=== PATIENT | female | born 1940 | race Caucasian/White ===

== ENCOUNTER 2017-07-01 14:37 | Inpatient (IN) | payer OTHER ==
[~2017-07-01] VITALS: Ht 157.5 cm; Wt 63.5 kg
--- NOTE | ~2017-07-01 | EKG ---
[address] [place] [place] [address] ELECTROCARDIOGRAM REPORT Name: YARED VERDUZCO Room #: 462- ADM IN M.R.#: [id number] Admission: 07/01/17 Attend Phys: Darwin Hayden MD Discharge: Date of : 44 Report #: [id number] THIS REPORT FOR: //name// [facility] Test Date: 2017-07-02 Test Time: 14:38:46 Pat Name: YARED VERDUZCO Department: Room: 462 Gender: F Neurology Tech: ABDULAZIZ : 1940 Requested By: Ericka Reyes Order Number: [id number] MD: Tee Ruiz Measurements Intervals [place]per Rate: 102 P: 76 VA: 160 QRS: 69 QRSD: 77 T: 61 QT: 338 QTc: 441 Interpretive Statements Sinus tachycardia Poor R wave progression Compared to ECG 09/09/2013 15:51:05 No significant change was found Electronically Signed On 07-03-2017 8:42:31 CDT by Tee Ruiz [email or web address] <ELECTRONICALLY SIGNED> By: Tee Ruiz MD, [facility] 07/03/17 [id number] Tee Ruiz MD, [facility] /EPI
[~2017-07-01 14:37] MED LIST: ACETAMINOPHEN-1 EAC1 PO; ALDACTONE25 MG; CARDIZEM CD120 MG PO; CIPROFLOXACIN500 M1 PO; FENTANYL PA25 MCG/HR TP; GLUCOPHAGE500 MG PO; LASIX 20 MG TAB20 MG; LASIX 20 MG TAB20 MG PO; OMEPRAZOLE; POTASSIUM20; PREDNISONE 20 M20 M1 PO; TOPROL XL50 MG PO; TRAMADOL 50 MG50 MG PO; ZOPENEX
[2017-07-01 14:40] VITALS: BP 161/62
[2017-07-01 17:04] LABS: ABSOLUTE NEUTROPHILS 8.8 thou/uL (1.4-8.2); HEMOGLOBIN 12.8 gm/dL (12.0-15.0); LYMPHOCYTES 12.2 % (24.0-44.0); MCH 28.7 pg (26.0-34.0); MCV 86.9 fL (80.0-100.0); PLATELET COUNT 441 thou/uL (150-400); POLYS 78.8 % (36.0-66.0); RBC 4.48 mil/uL (4.20-5.00); RDW 14.4 % (10.5-14.5); WBC 11.1 thou/uL (4.0-11.0)
[2017-07-01 17:12] LABS: CALCIUM 9.8 mg/dL (8.5-10.1); CREATININE 0.5 mg/dL (0.6-1.0); POTASSIUM 4.1 mmol/L (3.5-5.1)
[2017-07-01 17:17] LABS: ALBUMIN 3.3 g/dL (3.4-5.0); DIRECT BILIRUBIN 0.1 mg/dL (<0.1-0.3); TOTAL BILIRUBIN 0.3 mg/dL (<0.1-1.0)
[2017-07-01 19:36] VITALS: BP 166/100
[2017-07-01 20:24] LABS: URINE BILIRUBIN NEGATIVE (Negative); URINE BLOOD NEGATIVE (Negative); URINE CLARITY CLOUDY; URINE COLOR YELLOW; URINE GLUCOSE-RANDOM* NEGATIVE (Negative); URINE KETONES 1+ (Negative); URINE LEUKOCYTES 1+ (Negative); URINE NITRITE NEGATIVE (Negative); URINE PROTEIN (DIPSTICK) TRACE (Negative); URINE UROBILINOGEN 0.2 E.U./dl (0.2-1.0)
[2017-07-01 20:31] LABS: CASTS None Seen /LPF (None Seen); MUCUS 4-6 Moderate strn/LPF (None Seen); SQUAMOUS 4-10 Moderate /LPF (0-3); URINE WBC >25 Many /HPF (0-5)
[2017-07-01 20:32] LABS: AMORPHOUS PHOSPHATES Many /LPF (None Seen); WBC CLUMPS Few (None Seen)
[2017-07-01 20:50] VITALS: BP 150/72
[2017-07-02 04:03] VITALS: BP 165/75
[2017-07-02 06:16] LABS: HEMATOCRIT 39.2 % (37.0-47.0); HEMOGLOBIN 12.4 gm/dL (12.0-15.0); MCH 28.3 pg (26.0-34.0); MCHC 31.7 g/dL (28.0-37.0); MCV 89.2 fL (80.0-100.0); RBC 4.4 mil/uL (4.20-5.00); RDW 14.9 % (10.5-14.5); WBC 9.8 thou/uL (4.0-11.0)
[2017-07-02 06:29] LABS: CALCIUM 9.6 mg/dL (8.5-10.1); CREATININE 0.5 mg/dL (0.6-1.0); POTASSIUM 4.1 mmol/L (3.5-5.1)
[2017-07-02 08:00] VITALS: BP 154/67
[2017-07-02] MEDS ORDERED: PULMICORT0.5 MG/22 INH (11:13)
[2017-07-02] MEDS ORDERED: XOPENEX1.25 MG/3 (11:14)
[2017-07-02] MEDS ORDERED: LEVALBUTER1.25 MG/0. (11:15)
[2017-07-02] MEDS ORDERED: ATROVENT HFA14 GM INH (11:16)
[2017-07-02 16:53] VITALS: BP 175/84
[2017-07-02 19:17] VITALS: BP 137/68
[2017-07-02] MEDS ORDERED: VITAMINC500 (22:33)
[2017-07-02] MEDS ORDERED: OXYCODONE HCL 55 MG PO (22:35)
[2017-07-02] MEDS ORDERED: ZINC SULFATE 2220 M1 PO (22:36)
[2017-07-02] MEDS ORDERED: ROBITUSSIN100 MG/53 PO (23:47)
[2017-07-02] MEDS ORDERED: TYLENOL325 MG PO (23:55)
[2017-07-02] MEDS ORDERED: ASPIRIN81 M2 PO (23:57)
[2017-07-02] MEDS ORDERED: ONDANSETRON HCL4 M2 PO (23:58)
[2017-07-02] MEDS ORDERED: IRON325 PO (23:59)
[2017-07-03] MEDS ORDERED: PRAVACHOL20 MG PO (00:04)
[2017-07-03] MEDS ORDERED: XANAX 0.25 MG0.25 MG PO (00:07)
[2017-07-03] MEDS ORDERED: FLECAINIDE ACET50 M1 PO (00:08)
[2017-07-03] MEDS ORDERED: LEVEMIR SUBQ (00:10)
[2017-07-03] MEDS ORDERED: BUSPIRONE HCL10 MG PO (00:10)
[2017-07-03] MEDS ORDERED: VOLTAREN GEL 1100 G2 TOP (00:14)
[2017-07-03] MEDS ORDERED: BENADRYL25 MG PO (00:15)
[2017-07-03] MEDS ORDERED: ANTIVERT25 MG PO (00:16)
[2017-07-03] MEDS ORDERED: BACTROBAN NASAL1 GM NASAL (00:17)
[2017-07-03] MEDS ORDERED: NITROGLYCERIN0.4 MG SUBLING (00:18)
[2017-07-03] MEDS ORDERED: AMITRIPTYLINE H25 M2 PO (00:19)
[2017-07-03] MEDS ORDERED: NOVOLOG100 UNIT/1 SUBQ (00:20)
[2017-07-03] MEDS ORDERED: MUCINEX600 MG PO (00:22)
[2017-07-03] MEDS ORDERED: COLACE100 MG PO (00:23)
[2017-07-03] MEDS ORDERED: NICOTINE TRANSD21 M1 (00:24)
[2017-07-03] MEDS ORDERED: ENOXAPARIN40 MG/0.1 SUBQ (00:25)
[2017-07-03] MEDS ORDERED: FENTANYL 0.50 MCG/ML IV PUSH (00:27)
[2017-07-03 03:45] VITALS: BP 141/87
[2017-07-03 03:57] VITALS: BP 141/87
[2017-07-03 05:34] LABS: ABSOLUTE NEUTROPHILS 6.4 thou/uL (1.4-8.2); BASOPHILS 1.1 % (0.0-2.0); EOSINOPHILS 4.8 % (0.0-3.0); HEMATOCRIT 38.2 % (37.0-47.0); HEMOGLOBIN 12.5 gm/dL (12.0-15.0); LYMPHOCYTES 17.4 % (24.0-44.0); MCHC 32.8 g/dL (28.0-37.0); MCV 88.2 fL (80.0-100.0); PLATELET COUNT 404 thou/uL (150-400); POLYS 67.7 % (36.0-66.0); RBC 4.33 mil/uL (4.20-5.00); RDW 14.4 % (10.5-14.5); WBC 9.4 thou/uL (4.0-11.0)
[2017-07-03 05:53] LABS: CALCIUM 9.4 mg/dL (8.5-10.1); CREATININE 0.6 mg/dL (0.6-1.0); POTASSIUM 3.7 mmol/L (3.5-5.1)
[2017-07-03 06:34] LABS: FOLIC ACID 19.4 ng/mL (8.6-58.9); TSH 1.236 uIU/mL (0.358-3.740)
[2017-07-03 08:00] VITALS: BP 133/84
[2017-07-03 15:40] VITALS: BP 109/63
[2017-07-03 19:46] VITALS: BP 106/50
[2017-07-04 03:50] VITALS: BP 114/57
[2017-07-04 05:37] LABS: ABSOLUTE NEUTROPHILS 5.2 thou/uL (1.4-8.2); BASOPHILS 1.3 % (0.0-2.0); EOSINOPHILS 2.6 % (0.0-3.0); HEMATOCRIT 36.2 % (37.0-47.0); HEMOGLOBIN 11.8 gm/dL (12.0-15.0); LYMPHOCYTES 30.1 % (24.0-44.0); MCH 28.8 pg (26.0-34.0); MCHC 32.6 g/dL (28.0-37.0); MCV 88.4 fL (80.0-100.0); MONOCYTES 11.1 % (1.0-8.0); PLATELET COUNT 412 thou/uL (150-400); POLYS 54.9 % (36.0-66.0); RDW 14.1 % (10.5-14.5); WBC 9.5 thou/uL (4.0-11.0)
[2017-07-04 05:48] LABS: CALCIUM 9.8 mg/dL (8.5-10.1); CREATININE 0.7 mg/dL (0.6-1.0); POTASSIUM 4.4 mmol/L (3.5-5.1)
[2017-07-04 07:27] VITALS: BP 133/71
[2017-07-04 15:45] VITALS: BP 134/53
[2017-07-04 19:20] VITALS: BP 126/65
[2017-07-05 04:11] VITALS: BP 118/66
[2017-07-05 08:00] VITALS: BP 118/58
[2017-07-05 16:00] VITALS: BP 126/56
[2017-07-05 20:00] VITALS: BP 114/52
[2017-07-06 02:04] LABS: URINE BILIRUBIN NEGATIVE (Negative); URINE BLOOD NEGATIVE (Negative); URINE CLARITY SL CLOUDY; URINE COLOR YELLOW; URINE GLUCOSE-RANDOM* NEGATIVE (Negative); URINE KETONES NEGATIVE (Negative); URINE PROTEIN (DIPSTICK) NEGATIVE (Negative)
[2017-07-06 02:06] LABS: URINE LEUKOCYTES-REFLEX 1+ (Negative); URINE NITRITE-REFLEX POSITIVE (Negative)
[2017-07-06 02:18] LABS: BACTERIA-REFLEX >30 Many /HPF (None Seen); CRYSTALS None Seen /LPF (None Seen); HYALINE CASTS 0-3 Few /LPF (None Seen); MUCUS 0-3 Light strn/LPF (None Seen); SQUAMOUS 0-3 Few /LPF (0-3); URINE RBC None Seen /HPF (0-2); URINE WBC-REFLEX None Seen /HPF (0-5)
[2017-07-06 04:13] VITALS: BP 115/70
[2017-07-06 09:12] VITALS: BP 125/66
[2017-07-06 17:55] VITALS: BP 147/80
[2017-07-06 19:58] VITALS: BP 119/66
[2017-07-07 03:40] VITALS: BP 120/64
[2017-07-07 08:00] VITALS: BP 139/53
[2017-07-07 20:51] VITALS: BP 147/66
[2017-07-08 04:41] VITALS: BP 151/57
[2017-07-08 09:00] VITALS: BP 176/77
[2017-07-08 16:00] VITALS: BP 153/73
[2017-07-08 20:00] VITALS: BP 137/67
[2017-07-09 04:22] VITALS: BP 190/77
[2017-07-09 07:52] VITALS: BP 117/47
[2017-07-09 15:46] VITALS: BP 143/68
[2017-07-09 20:33] VITALS: BP 147/71
[2017-07-10 08:00] VITALS: BP 120/57
[2017-07-10 19:27] VITALS: BP 141/55
[2017-07-11 02:45] VITALS: BP 162/70
[2017-07-11 04:45] VITALS: BP 149/74
[2017-07-11 05:07] VITALS: BP 138/88
[2017-07-11 07:56] VITALS: BP 154/92
[2017-07-11 08:00] VITALS: BP 156/81
[2017-07-11 14:17] VITALS: BP 156/81
== END 2017-07-11 17:22 | DRG 391 ==
LOC: ER 14:37 → EROBS 17:47 → 4W 17:47
PROVIDERS: Emergency Medicine; Hospitalist
DX: K59.00 Constipation, unspecified (principal); E43 Unspecified severe protein-calorie malnutrition; F30.9 Manic episode, unspecified; N39.0 Urinary tract infection, site not specified; K43.2 Incisional hernia without obstruction or gangrene; I48.91 Unspecified atrial fibrillation; E78.00 Pure hypercholesterolemia, unspecified; J44.9 Chronic obstructive pulmonary disease, unspecified; E11.9 Type 2 diabetes mellitus without complications; G89.29 Other chronic pain; R10.9 Unspecified abdominal pain; R07.9 Chest pain, unspecified; F17.210 Nicotine dependence, cigarettes, uncomplicated; Z60.2 Problems related to living alone; I25.10 Atherosclerotic heart disease of native coronary artery without angina pectoris; I11.0 Hypertensive heart disease with heart failure; I50.9 Heart failure, unspecified; B96.20 Unspecified Escherichia coli [E. coli] as the cause of diseases classified elsewhere; Z88.0 Allergy status to penicillin; Z88.2 Allergy status to sulfonamides; Z79.899 Other long term (current) drug therapy; Z88.8 Allergy status to other drugs, medicaments and biological substances; Z88.6 Allergy status to analgesic agent; Z91.041 Radiographic dye allergy status
CPT/HCPCS: 10040